=== PATIENT | male | born 1990 | race Caucasian/White ===

== ENCOUNTER 2017-02-14 17:43 | Emergency (ER) | payer BC ==
[2017-02-14] MEDS ORDERED: Ketorolac Tromethamine 60 MG/2 ML VIAL ONE (17:51)
[2017-02-14] MEDS ORDERED: HYDROcodone/Acetaminophen 5/325 mg Tablet ONE (18:16)
--- NOTE | 2017-02-14 19:47 | RAD ---
THREE VIEWS RIGHT WRIST 02/14/17 HISTORY: Injury after a fall. Patient fell from 7 to 8 feet off a ladder. FINDINGS: There is a fracture involving the distal right radial metaphysis which is obliquely oriented and ext ends to the radiocarpal joint medially without significant intra-articular gap or step-off present. There is slight separation of the fracture fragment measuring 1 mm noted on the lateral projection. No additional fracture is seen and there is no dislocation. IMPRESSION: Nondisplaced distal right radial metaphyseal fracture with intra-articular extension. POS: AYUSH
--- NOTE | 2017-02-14 19:49 | RAD ---
THREE VIEWS OF THE SACRUM AND COCCYX 02/14/17 HISTORY: Injury after a fall. Patient fell 7 to 8 feet from a ladder. FINDINGS: Sacroiliac joints are normal and symmetric in appearance bilaterally. No fracture is seen involving the coccyx. There is prominent angulation at the most distal aspect of the sacrum and the coccyx whi ch is likely developmental in origin. No other findings. IMPRESSION: No obvious acute fracture involving the sacrum or coccyx. POS: [email or web address]
== END 2017-02-14 19:12 | disposition home or self-care (01) ==
LOC: BURERS 17:43
DX: S52.571A Other intraarticular fracture of lower end of right radius, initial encounter for closed fracture (principal); W11.XXXA Fall on and from ladder, initial encounter
CPT/HCPCS: 29105; 72220; 96372; J1885

== ENCOUNTER 2020-05-11 15:04 | Outpatient (CLI) | payer OTHER ==
[2020-05-12 16:30] LABS: Chlam.trachomatis by PCR,Urine Not Detected (NotDetected)
== END 2020-05-11 15:05 | disposition home or self-care (01) ==
LOC: BURLAB 15:04
PROVIDERS: ATTEND Nurse Practitioner Family
DX: R35.0 Frequency of micturition (principal)
CPT/HCPCS: 87086; 87491; 87591

== ENCOUNTER 2022-12-05 17:18 | Emergency (ER) | payer BC, OTHER ==
[2022-12-05] MEDS ORDERED: Boostrix 0.5 ML (Tdap) VIAL (>/=7 yrs of age) ONE ×2 (17:38→17:51)
[2022-12-05] MEDS ORDERED: Lidocaine 2% w/Epinephrine 1:200K 20 ML VIAL ONE (18:52)
[2022-12-05] MEDS ORDERED: Lidocaine 1%/Epinephrine 1:100K 10 ML VIAL ONE (18:53)
== END 2022-12-05 19:30 | disposition home or self-care (01) ==
LOC: BURERS 17:18
DX: S61.431A Puncture wound without foreign body of right hand, initial encounter (principal); Z23 Encounter for immunization; W26.9XXA Contact with unspecified sharp object(s), initial encounter
CPT/HCPCS: 90471; 90715